=== PATIENT | female | born 1995 | race Two or more races ===

== ENCOUNTER 2022-06-08 15:18 | Emergency (ER) | payer SELFPAY ==
[~2022-06-08] VITALS: Ht 175.3 cm; Wt 59.0 kg
[2022-06-08 15:23] VITALS: BP 110/73
--- NOTE | 2022-06-08 15:25 | NUR ---
PT A/O X4 C/O LEASION IN THE PIT OF THE AXILLA RED, IRRITATED, ROUNDED AND SWOLLEN, MEASURES 3CMX 3 CM.
[2022-06-08] MEDS ORDERED: CLIN300C12 PO (15:47)
[2022-06-08] MEDS ORDERED: IBUPROFEN 600 MG TABLET ONE (15:49)
[2022-06-08] MEDS ORDERED: CLINDAMYCIN HCL 150 MG CAPSULE ONE (15:49)
[2022-06-08] MEDS ORDERED: CLINDAMYCIN HCL 150 MG CAPSULE PO ONE (16:00)
[2022-06-08] MEDS ORDERED: IBUPROFEN 600 MG TABLET PO ONE (16:00)
== END 2022-06-08 15:58 | disposition home or self-care (01) ==
LOC: ER 15:25
DX: L03.112 Cellulitis of left axilla (principal); Z88.8 Allergy status to other drugs, medicaments and biological substances